=== PATIENT | male | born 1955 | race Caucasian/White ===

== ENCOUNTER 2021-02-16 00:23 | Inpatient (IN) | payer MEDICARE, MEDICAID ==
[~2021-02-16] VITALS: Ht 170.2 cm; Wt 83.0 kg
[~2021-02-16 00:23] MED LIST: AMIO200T33 PO; AMLO10CA33 PO; APIX5TAB PO; CHLO25TA2 PO; METO25TA5 PO; POTA10TA51 PO; SIMV-8 PO; TAMS0.4C36 PO
[2021-02-16] MEDS ORDERED: DEXTROSE (50%) 50ML SYRG IV ONE ×2 (02:00→07:15)
[2021-02-16] MEDS ORDERED: ALBUTEROL SULF 2.5 MG/0.5ML(0.5%) NEB SOLN NEB ONE (02:00)
[2021-02-16] MEDS ORDERED: SODIUM ZIRCONIUM CYCL 10 GM PAK PO ONE ×2 (02:00→07:15)
[2021-02-16] MEDS ORDERED: InsuLIN REG 1unit/0.01ml Soln (100units/ml) IV ONE ×2 (02:00→07:15)
[2021-02-16] MEDS ORDERED: SODIUM BICARBONATE 8.4% INJ 50ML SYRINGE IV ONE (02:00)
[2021-02-16] MEDS ORDERED: CALCIUM GLUC 1,000mg/50ml-NS 50 ML IV ONE ×2 (02:00→07:15)
[2021-02-16 02:01] LABS: Basophils % (manual) 0 (0.0-2.0); Blast Cells 0; Eosinophils % (manual) 0 (0-7); Hematocrit 41.3 % (41.0-53.0); Hemoglobin 13.6 g/dL (13.5-17.5); Mean Corpuscular Hemoglobin 30.1 pg (28.0-32.0); Mean Corpuscular Hgb Conc. 32.8 g/dL (32.0-36.0); Mean Corpuscular Volume 91.9 fL (80.0-100.0); Metamyelocytes % 0; Myelocytes % 0; Promyelocytes % 0; Reactive Lymphocytes 0; Red Cell Distribution Width 18.8 % (11.8-14.3)
[2021-02-16 02:04] LABS: Band Neutrophils % (manual) 7; Lymphocytes % (manual) 2 (10.0-50.0); Monocytes % (manual) 6 (0-12)
[2021-02-16 02:10] LABS: Alanine Aminotransferase 89 U/L (16-61); Albumin 2.8 g/dL (3.4-5.0); Alkaline Phosphatase 52 U/L (45-117); Anion Gap 20 (5-15); Aspartate Aminotransferase 72 U/L (15-37); Bilirubin, Total 0.7 mg/dL (0.2-1.0); Calcium 8.7 mg/dL (8.5-10.1); Carbon Dioxide 19 mmol/L (21-32); Chloride 95 mmol/L (98-107); GFR African American 9 mL/min; GFR Non-African American 7 mL/min; Glucose 95 mg/dL (74-106); Sodium 134 mmol/L (136-145); Total Protein 6.4 g/dL (6.4-8.2)
[2021-02-16 02:11] LABS: Potassium 6.2 mmol/L (3.5-5.1)
[2021-02-16 02:12] LABS: BUN/Creatinine Ratio 19.9; Blood Urea Nitrogen 157 mg/dL (7-18)
[2021-02-16 02:30] LABS: Magnesium 2.9 mg/dL (1.6-2.6)
[2021-02-16 03:03] LABS: Phosphorus 11.1 mg/dL (2.5-4.90)
[2021-02-16] MEDS ORDERED: SODIUM BICARBONATE 8.4 % INJ 50ML VIAL IV ONE (07:15)
[2021-02-16] MEDS ORDERED: MORPHINE SULFATE INJECTION 2 MG/ML SYRG IV PRN (07:15)
[2021-02-16] MEDS ORDERED: ONDANSETRON HCL 4 MG/2 ML VIAL IV PRN (07:15)
[2021-02-16] MEDS ORDERED: NITROGLYCERIN 0.4 MG SL TAB SL PRN (07:15)
[2021-02-16 08:05] LABS: INR 1.13 (0.9-1.15); Partial Thromboplastin Time 24.7 sec (23.6-33.0)
[2021-02-16] MEDS: METOPROLOL TARTRATE 25 MG TAB PO SCH ×2 (09:49→23:06)
[2021-02-16] MEDS: AMIODARONE HCL 200 MG TAB PO SCH ×2 (09:49→23:06)
[2021-02-16] MEDS ORDERED: PANTOPRAZOLE 40 MG TAB PO SCH (10:00)
[2021-02-16] MEDS ORDERED: cefTRIAXone 1GM/50ML D5W 50 ML IV ONE (13:30)
[2021-02-16] MEDS: SODIUM CHLORIDE 0.9% 1,000 ML IV SCH ×2 (13:55→23:56)
[2021-02-16] MEDS ORDERED: DEXA2TAB PO (14:32)
[2021-02-16] MEDS ORDERED: ALBU108A5 INH (14:32)
[2021-02-16] MEDS ORDERED: FLUT1AER3 INH (14:32)
[2021-02-16] MEDS ORDERED: MORP1TAB12 PO (14:32)
[2021-02-16] MEDS ORDERED: HYDR1TAB97 PO (14:32)
[2021-02-16] MEDS ORDERED: BICA50TA13 PO (14:32)
[2021-02-16] MEDS ORDERED: CAR3125T PO (14:32)
[2021-02-16] MEDS ORDERED: CARV3.1240 PO (14:43)
[2021-02-16] MEDS ORDERED: ATEN25TA PO (14:43)
[2021-02-16] MEDS ORDERED: CLON0.3T PO (14:43)
[2021-02-16] MEDS ORDERED: SPIR25TA8 PO (14:43)
[2021-02-16] MEDS ORDERED: GABA300C10 PO (14:43)
[2021-02-16 22:08] VITALS: BP 137/68
[2021-02-16] MEDS: ATORVASTATIN 20 MG TAB PO SCH (23:06)
[2021-02-17 05:00] VITALS: BP 111/57
[2021-02-17] MEDS: SODIUM CHLORIDE 0.9% 1,000 ML IV SCH (07:10)
[2021-02-17] MEDS ORDERED: ALBUTEROL SULF 2.5 MG/0.5ML(0.5%) NEB SOLN NEB ONE (07:15)
[2021-02-17] MEDS ORDERED: InsuLIN REG 1unit/0.01ml Soln (100units/ml) IV ONE (07:15)
[2021-02-17] MEDS ORDERED: DEXTROSE (50%) 50ML SYRG IV ONE ×3 (07:15→19:30)
[2021-02-17] MEDS ORDERED: SODIUM BICARBONATE 50ML VIAL 75 ML in SOD CHL 0.45% 1,000 ML IV SCH ×2 (07:15→15:30)
[2021-02-17] MEDS ORDERED: FUROSEMIDE 100 MG/10ML VIAL IV ONE (07:15)
[2021-02-17 08:24] LABS: Basophils # (auto) 0.1 10 ^3/uL (0-0.2); Basophils % (auto) 0.9 % (0.0-2.0); Eosinophils # (auto) 0 10 ^3/uL (0-0.8); Hematocrit 42.2 % (41.0-53.0); Hemoglobin 13.8 g/dL (13.5-17.5); Lymphocytes # (auto) 0.1 10 ^3/uL (0.4-5.4); Lymphocytes % (auto) 1.4 % (10.0-50.0); Mean Corpuscular Hemoglobin 30.4 pg (28.0-32.0); Mean Corpuscular Hgb Conc. 32.8 g/dL (32.0-36.0); Mean Corpuscular Volume 92.9 fL (80.0-100.0); Monocytes % (auto) 9.7 % (0.0-12.0); Nucleated Red Blood Cells % 0.3 %; Red Blood Cells 4.54 10^6/uL (4.5-5.90); Red Cell Distribution Width 19.2 % (11.8-14.3); White Blood Cell 10.2 10^3/uL (4.4-10.8)
[2021-02-17 08:35] LABS: Albumin 2.7 g/dL (3.4-5.0); Calcium 9.1 mg/dL (8.5-10.1)
[2021-02-17 08:38] LABS: BUN/Creatinine Ratio 19.5; Total Protein 6.3 g/dL (6.4-8.2)
[2021-02-17 08:42] LABS: Bilirubin, Total 0.7 mg/dL (0.2-1.0)
[2021-02-17 09:00] VITALS: BP 146/68
[2021-02-17] MEDS: SODIUM ZIRCONIUM CYCL 10 GM PAK PO SCH ×3 (09:13→22:00)
[2021-02-17] MEDS: ALLOPURINOL 100 MG TAB PO SCH (09:14)
[2021-02-17] MEDS: SEVELAMER 800 MG TAB PO SCH ×3 (09:14→18:00)
[2021-02-17] MEDS: cefTRIAXone 1GM/50ML D5W 50 ML IV SCH ×2 (09:15→10:47)
[2021-02-17 09:29] LABS: Potassium 6.6 mmol/L (3.5-5.1)
[2021-02-17] MEDS ORDERED: SODIUM ZIRCONIUM CYCL 10 GM PAK PO ONE (10:30)
[2021-02-17] MEDS ORDERED: SODIUM BICARBONATE 8.4 % INJ 50ML VIAL IV ONE (10:30)
[2021-02-17] MEDS: METOPROLOL TARTRATE 25 MG TAB PO SCH ×2 (10:46→12:30)
[2021-02-17] MEDS: AMIODARONE HCL 200 MG TAB PO SCH ×2 (10:46→22:00)
[2021-02-17 12:54] VITALS: BP 111/62
[2021-02-17] MEDS ORDERED: SODIUM CHL 0.9% 1000 ML BAG XX ONE (15:15)
[2021-02-17] MEDS ORDERED: MIDAZOLAM HCL 2MG/2ML 2ml VIAL (1mg/ml) IV ONE (15:30)
[2021-02-17] MEDS ORDERED: MORPHINE SULFATE INJECTION 2 MG/ML SYRG IM ONE (15:30)
[2021-02-17] MEDS ORDERED: HEPARIN 1,000 UNITS/ml 1ML VIAL IV ONE ×2 (15:30→15:45)
[2021-02-17] MEDS ORDERED: LORazepam 2MG/ML-1ML VIAL IM ONE (16:00)
[2021-02-17 16:35] LABS: Calcium 8.7 mg/dL (8.5-10.1); Potassium 5.1 mmol/L (3.5-5.1)
[2021-02-17 16:40] LABS: BUN/Creatinine Ratio 20.8
[2021-02-17 17:00] VITALS: BP 117/66
[2021-02-17] MEDS ORDERED: LIDOCAINE 2% JELLY 11ml (GLYDO) UR ONE (18:15)
[2021-02-17] MEDS: DEXTROSE 10% 1,000 ML IV SCH (20:11)
[2021-02-17 22:00] VITALS: BP 150/100
[2021-02-17] MEDS: ATORVASTATIN 20 MG TAB PO SCH (22:00)
[2021-02-17] MEDS ORDERED: LORazepam 2MG/ML-1ML VIAL IV PRN (22:15)
[2021-02-17] MEDS ORDERED: HALOPERIDOL LACTATE 5 MG/ML INJ VIAL IM PRN (22:15)
[2021-02-18 05:00] VITALS: BP 140/64
[2021-02-18] MEDS: SODIUM ZIRCONIUM CYCL 10 GM PAK PO SCH ×3 (06:00→22:26)
[2021-02-18] MEDS ORDERED: SODIUM CHL 0.9% 1000 ML BAG XX ONE (07:00)
[2021-02-18 08:05] LABS: Basophils # (auto) 0.2 10 ^3/uL (0-0.2); Basophils % (auto) 1.5 % (0.0-2.0); Eosinophils # (auto) 0 10 ^3/uL (0-0.8); Eosinophils % (auto) 0.2 % (0.0-7.0); Hematocrit 38.3 % (41.0-53.0); Hemoglobin 12.7 g/dL (13.5-17.5); Lymphocytes # (auto) 0.2 10 ^3/uL (0.4-5.4); Lymphocytes % (auto) 1.5 % (10.0-50.0); Mean Corpuscular Hemoglobin 30.4 pg (28.0-32.0); Mean Corpuscular Hgb Conc. 33.1 g/dL (32.0-36.0); Mean Corpuscular Volume 91.8 fL (80.0-100.0); Monocytes # (auto) 1.1 10 ^3/uL (0-1.3); Monocytes % (auto) 9.1 % (0.0-12.0); Neutrophils # (auto) 10.6 10 ^3/uL (1.6-8.6); Neutrophils % (auto) 87.7 % (37.0-80.0); Nucleated Red Blood Cells % 0.2 %; Red Blood Cells 4.17 10^6/uL (4.5-5.90); Red Cell Distribution Width 19.4 % (11.8-14.3)
[2021-02-18 08:30] LABS: Albumin 2.5 g/dL (3.4-5.0); Calcium 8.6 mg/dL (8.5-10.1)
[2021-02-18 08:35] LABS: BUN/Creatinine Ratio 16.8; Bilirubin, Total 0.8 mg/dL (0.2-1.0)
[2021-02-18 09:00] VITALS: BP 141/73
[2021-02-18] MEDS: AMIODARONE HCL 200 MG TAB PO SCH ×2 (10:46→22:26)
[2021-02-18] MEDS: METOPROLOL TARTRATE 25 MG TAB PO SCH ×2 (10:53→22:27)
[2021-02-18] MEDS: SEVELAMER 800 MG TAB PO SCH ×3 (11:22→18:03)
[2021-02-18] MEDS ORDERED: LORazepam 0.5 MG TAB PO PRN (12:45)
[2021-02-18 13:00] VITALS: BP 138/72
[2021-02-18 16:45] VITALS: BP 169/78
[2021-02-18] MEDS: DEXTROSE 10% 1,000 ML IV SCH (19:30)
[2021-02-18 22:00] VITALS: BP 164/83
[2021-02-18] MEDS: ATORVASTATIN 20 MG TAB PO SCH (22:26)
[2021-02-19 05:00] VITALS: BP 144/77
[2021-02-19] MEDS: SODIUM ZIRCONIUM CYCL 10 GM PAK PO SCH ×3 (06:27→21:18)
[2021-02-19] MEDS: ALLOPURINOL 100 MG TAB PO SCH (06:52)
[2021-02-19 08:01] LABS: Basophils # (auto) 0 10 ^3/uL (0-0.2); Basophils % (auto) 0.3 % (0.0-2.0); Eosinophils # (auto) 0.1 10 ^3/uL (0-0.8); Eosinophils % (auto) 0.9 % (0.0-7.0); Hematocrit 36.8 % (41.0-53.0); Hemoglobin 12.3 g/dL (13.5-17.5); Lymphocytes # (auto) 0.2 10 ^3/uL (0.4-5.4); Lymphocytes % (auto) 1.9 % (10.0-50.0); Mean Corpuscular Hemoglobin 30.3 pg (28.0-32.0); Mean Corpuscular Hgb Conc. 33.4 g/dL (32.0-36.0); Mean Corpuscular Volume 90.9 fL (80.0-100.0); Monocytes # (auto) 1.1 10 ^3/uL (0-1.3); Neutrophils # (auto) 9.9 10 ^3/uL (1.6-8.6); Neutrophils % (auto) 86.9 % (37.0-80.0); Nucleated Red Blood Cells % 0.2 %; Red Blood Cells 4.05 10^6/uL (4.5-5.90); White Blood Cell 11.3 10^3/uL (4.4-10.8)
[2021-02-19 08:26] LABS: Albumin 2.3 g/dL (3.4-5.0); Calcium 8.5 mg/dL (8.5-10.1); Potassium 4.4 mmol/L (3.5-5.1)
[2021-02-19 08:30] LABS: Bilirubin, Total 0.9 mg/dL (0.2-1.0); Total Protein 5.6 g/dL (6.4-8.2)
[2021-02-19 08:41] VITALS: BP 145/83
[2021-02-19] MEDS: SEVELAMER 800 MG TAB PO SCH ×3 (10:47→17:28)
[2021-02-19] MEDS: AMIODARONE HCL 200 MG TAB PO SCH ×2 (10:48→21:17)
[2021-02-19] MEDS: METOPROLOL TARTRATE 25 MG TAB PO SCH ×2 (10:49→21:19)
[2021-02-19 12:54] VITALS: BP 177/81
[2021-02-19] MEDS ORDERED: LORazepam 2MG/ML-1ML VIAL IV ONE (14:00)
[2021-02-19] MEDS ORDERED: MORPHINE SULFATE INJECTION 2 MG/ML SYRG IV ONE (14:00)
[2021-02-19] MEDS ORDERED: HEPARIN 1,000 UNITS/ml 1ML VIAL IV ONE (14:30)
[2021-02-19] MEDS: cefTRIAXone 1GM/50ML D5W 50 ML IV SCH (15:38)
[2021-02-19 17:00] VITALS: BP 160/87
[2021-02-19] MEDS: SOD CHL 0.45% 1,000 ML IV SCH (17:29)
[2021-02-19] MEDS: cloNIDine HCL 0.1 MG TAB PO PRN (17:53)
[2021-02-19] MEDS: ATORVASTATIN 20 MG TAB PO SCH (21:18)
[2021-02-19 22:00] VITALS: BP 141/75
[2021-02-20 05:00] VITALS: BP 148/80
[2021-02-20] MEDS: SODIUM ZIRCONIUM CYCL 10 GM PAK PO SCH (05:54)
[2021-02-20] MEDS: SOD CHL 0.45% 1,000 ML IV SCH ×2 (05:54→13:58)
[2021-02-20] MEDS ORDERED: diphenhdrAMINE HCL 25 MG CAP PO ONE (08:30)
[2021-02-20 08:35] VITALS: BP 158/73
[2021-02-20] MEDS: cefTRIAXone 1GM/50ML D5W 50 ML IV SCH (08:47)
[2021-02-20] MEDS: cloNIDine HCL 0.1 MG TAB PO PRN (08:48)
[2021-02-20] MEDS: SEVELAMER 800 MG TAB PO SCH ×3 (08:48→18:36)
[2021-02-20 12:37] VITALS: BP 142/85
[2021-02-20] MEDS: LORazepam 0.5 MG TAB PO SCH ×2 (13:58→21:52)
[2021-02-20] MEDS: AMIODARONE HCL 200 MG TAB PO SCH ×2 (15:11→21:53)
[2021-02-20] MEDS: METOPROLOL TARTRATE 25 MG TAB PO SCH ×2 (15:12→21:53)
[2021-02-20 15:50] LABS: BUN/Creatinine Ratio 13.7; Calcium 7.9 mg/dL (8.5-10.1); Potassium 3.7 mmol/L (3.5-5.1)
[2021-02-20 16:37] VITALS: BP 153/70
[2021-02-20] MEDS: ATORVASTATIN 20 MG TAB PO SCH (21:53)
[2021-02-20 22:00] VITALS: BP 140/71
[2021-02-21] MEDS: SOD CHL 0.45% 1,000 ML IV SCH ×3 (03:28→17:45)
[2021-02-21 05:00] VITALS: BP 140/79
[2021-02-21] MEDS: LORazepam 0.5 MG TAB PO SCH ×3 (06:00→22:06)
[2021-02-21] MEDS ORDERED: SODIUM CHL 0.9% 1000 ML BAG XX ONE (07:15)
[2021-02-21 09:00] VITALS: BP 131/65
[2021-02-21] MEDS: cefTRIAXone 1GM/50ML D5W 50 ML IV SCH (09:53)
[2021-02-21] MEDS: METOPROLOL TARTRATE 25 MG TAB PO SCH ×2 (09:55→22:07)
[2021-02-21] MEDS: ALLOPURINOL 100 MG TAB PO SCH (09:55)
[2021-02-21] MEDS: AMIODARONE HCL 200 MG TAB PO SCH ×2 (09:55→22:07)
[2021-02-21] MEDS: SEVELAMER 800 MG TAB PO SCH ×3 (09:56→18:19)
[2021-02-21 17:00] VITALS: BP 157/77
[2021-02-21] MEDS ORDERED: EPOETIN ALFA-EPBX 10,000 UNIT/1ML VIAL SC ONE (21:30)
[2021-02-21 22:00] VITALS: BP 151/71
[2021-02-21] MEDS: ATORVASTATIN 20 MG TAB PO SCH (22:07)
[2021-02-22] MEDS: SOD CHL 0.45% 1,000 ML IV SCH (01:22)
[2021-02-22] MEDS: LORazepam 0.5 MG TAB PO SCH ×3 (05:14→21:08)
[2021-02-22 05:48] LABS: Potassium 3.5 mmol/L (3.5-5.1)
[2021-02-22 05:57] LABS: Albumin 1.9 g/dL (3.4-5.0); BUN/Creatinine Ratio 11.2; Bilirubin, Total 0.5 mg/dL (0.2-1.0); Calcium 7.3 mg/dL (8.5-10.1); Phosphorus 6.2 mg/dL (2.5-4.90); Total Protein 5.1 g/dL (6.4-8.2); Uric Acid 7.9 mg/dL (3.5-7.2)
[2021-02-22] MEDS: SEVELAMER 800 MG TAB PO SCH ×3 (08:00→18:00)
[2021-02-22 09:00] VITALS: BP 145/75
[2021-02-22] MEDS: cefTRIAXone 1GM/50ML D5W 50 ML IV SCH (09:00)
[2021-02-22] MEDS: METOPROLOL TARTRATE 25 MG TAB PO SCH ×2 (10:00→21:09)
[2021-02-22] MEDS: AMIODARONE HCL 200 MG TAB PO SCH ×2 (10:00→21:09)
[2021-02-22 12:59] VITALS: BP 140/63
[2021-02-22 17:00] VITALS: BP 154/73
[2021-02-22] MEDS: ATORVASTATIN 20 MG TAB PO SCH (21:09)
[2021-02-22 22:00] VITALS: BP 160/78
[2021-02-22 22:42] LABS: Folate (Folic Acid) 13.95 ng/mL (5.38-24)
[2021-02-22] MEDS: ACETAMINOPHEN 325 MG TAB PO PRN (23:29)
[2021-02-23] MEDS: cloNIDine HCL 0.1 MG TAB PO PRN (04:26)
[2021-02-23 04:34] VITALS: BP 173/88
[2021-02-23] MEDS: LORazepam 0.5 MG TAB PO SCH ×3 (05:17→22:56)
[2021-02-23] MEDS ORDERED: SODIUM CHL 0.9% 1000 ML BAG XX ONE (07:00)
[2021-02-23 07:26] LABS: Basophils # (auto) 0.1 10 ^3/uL (0-0.2); Basophils % (auto) 0.6 % (0.0-2.0); Eosinophils # (auto) 0.1 10 ^3/uL (0-0.8); Eosinophils % (auto) 1.5 % (0.0-7.0); Hematocrit 29.6 % (41.0-53.0); Hemoglobin 9.9 g/dL (13.5-17.5); Lymphocytes # (auto) 0.2 10 ^3/uL (0.4-5.4); Mean Corpuscular Hemoglobin 31.2 pg (28.0-32.0); Mean Corpuscular Hgb Conc. 33.5 g/dL (32.0-36.0); Mean Corpuscular Volume 93.1 fL (80.0-100.0); Monocytes # (auto) 0.7 10 ^3/uL (0-1.3); Monocytes % (auto) 7.8 % (0.0-12.0); Neutrophils # (auto) 7.5 10 ^3/uL (1.6-8.6); Neutrophils % (auto) 88.1 % (37.0-80.0); Red Blood Cells 3.17 10^6/uL (4.5-5.90); Red Cell Distribution Width 18.8 % (11.8-14.3); White Blood Cell 8.5 10^3/uL (4.4-10.8)
[2021-02-23 07:42] LABS: Albumin 1.9 g/dL (3.4-5.0); Calcium 7.5 mg/dL (8.5-10.1); Potassium 3.2 mmol/L (3.5-5.1)
[2021-02-23 07:47] LABS: BUN/Creatinine Ratio 10.7; Bilirubin, Total 0.4 mg/dL (0.2-1.0); Total Protein 5.1 g/dL (6.4-8.2)
[2021-02-23] MEDS: SEVELAMER 800 MG TAB PO SCH ×3 (08:00→17:46)
[2021-02-23 09:00] VITALS: BP 124/59
[2021-02-23 12:36] VITALS: BP 140/79
[2021-02-23] MEDS: cefTRIAXone 1GM/50ML D5W 50 ML IV SCH (12:50)
[2021-02-23] MEDS: METOPROLOL TARTRATE 25 MG TAB PO SCH ×2 (12:50→22:59)
[2021-02-23] MEDS: AMIODARONE HCL 200 MG TAB PO SCH ×2 (12:50→22:57)
[2021-02-23] MEDS: ALLOPURINOL 100 MG TAB PO SCH (12:50)
[2021-02-23 17:01] VITALS: BP 146/71
[2021-02-23] MEDS ORDERED: EPOETIN ALFA-EPBX 10,000 UNIT/1ML VIAL SC ONE ×2 (21:00)
[2021-02-23] MEDS: HYDROcodone-ACET 5/325MG TAB PO PRN (21:10)
[2021-02-23 22:00] VITALS: BP 163/80
[2021-02-23] MEDS: ATORVASTATIN 20 MG TAB PO SCH (22:57)
[2021-02-23] MEDS: ACETAMINOPHEN 325 MG TAB PO PRN (22:57)
[2021-02-24] MEDS ORDERED: TEMAZEPAM 15 MG CAP PO ONE (01:00)
[2021-02-24 05:00] VITALS: BP 148/70
[2021-02-24] MEDS: LORazepam 0.5 MG TAB PO SCH ×3 (05:04→21:46)
[2021-02-24 07:05] LABS: Albumin 1.9 g/dL (3.4-5.0); Calcium 7.8 mg/dL (8.5-10.1); Potassium 3.5 mmol/L (3.5-5.1)
[2021-02-24 07:09] LABS: BUN/Creatinine Ratio 9.2; Bilirubin, Total 0.4 mg/dL (0.2-1.0); Total Protein 5.3 g/dL (6.4-8.2)
[2021-02-24] MEDS: SEVELAMER 800 MG TAB PO SCH ×3 (08:00→18:00)
[2021-02-24 09:00] VITALS: BP 154/65
[2021-02-24] MEDS ORDERED: ceFAZolin 1GM/50ML 100 ML IV ONE (10:55)
[2021-02-24] MEDS ORDERED: fentaNYL CITRATE 100 MCG/2 ML VL ONE (11:16)
[2021-02-24] MEDS ORDERED: MEPERIDINE HCL (25 MG/ML) 1ML VIAL ONE (11:16)
[2021-02-24] MEDS ORDERED: MIDAZOLAM HCL 2MG/2ML 2ml VIAL (1mg/ml) ONE (11:16)
[2021-02-24] MEDS ORDERED: DexAMETHasone SOD PHOS 10MG/1ML VIAL INJ ONE (11:47)
[2021-02-24] MEDS ORDERED: PROPOFOL 10 MG/ML 20 ML IV ONE (11:47)
[2021-02-24] MEDS ORDERED: MORPHINE SULFATE 4 MG/ML SYR/VIAL IV PRN (12:15)
[2021-02-24] MEDS ORDERED: ONDANSETRON HCL 4 MG/2 ML VIAL IV PRN (12:15)
[2021-02-24] MEDS ORDERED: fentaNYL CITRATE 100 MCG/2 ML VL IV PRN (12:15)
[2021-02-24] MEDS ORDERED: LABETALOL HCL 5 MG/ML 4ML SYRINGE IV PRN (12:15)
[2021-02-24] MEDS ORDERED: ePHEDrine SULFATE 50 MG/ML AMP IV PRN (12:15)
[2021-02-24] MEDS ORDERED: MIDAZOLAM HCL 2MG/2ML 2ml VIAL (1mg/ml) IV PRN (12:15)
[2021-02-24] MEDS: AMIODARONE HCL 200 MG TAB PO SCH ×2 (13:30→21:46)
[2021-02-24] MEDS: METOPROLOL TARTRATE 25 MG TAB PO SCH ×2 (13:30→21:45)
[2021-02-24 15:54] LABS: Urine Bacteria NONE SEEN /hpf (None Seen); Urine Blood 1+ /uL (Negative); Urine Specific Gravity 1.015 (1.001-1.035); Urine WBC 4 /hpf (0 - 3)
[2021-02-24] MEDS: HYDROcodone-ACET 5/325MG TAB PO PRN ×2 (16:10→23:33)
[2021-02-24 16:52] VITALS: BP 165/83
[2021-02-24] MEDS: ATORVASTATIN 20 MG TAB PO SCH (21:46)
[2021-02-24 22:00] VITALS: BP 155/92
[2021-02-25 05:00] VITALS: BP 151/73
[2021-02-25] MEDS: LORazepam 0.5 MG TAB PO SCH ×3 (05:07→21:36)
[2021-02-25] MEDS: ALLOPURINOL 100 MG TAB PO SCH (05:13)
[2021-02-25] MEDS ORDERED: SODIUM CHL 0.9% 1000 ML BAG XX ONE (07:00)
[2021-02-25 07:30] LABS: Hematocrit 32.7 % (41.0-53.0); Hemoglobin 10.8 g/dL (13.5-17.5)
[2021-02-25] MEDS: SEVELAMER 800 MG TAB PO SCH ×3 (08:00→18:00)
[2021-02-25 08:01] LABS: Albumin 2.1 g/dL (3.4-5.0); Potassium 4.1 mmol/L (3.5-5.1)
[2021-02-25 08:16] LABS: BUN/Creatinine Ratio 8.9; Bilirubin, Total 0.4 mg/dL (0.2-1.0)
[2021-02-25] MEDS: METOPROLOL TARTRATE 25 MG TAB PO SCH ×2 (08:38→21:44)
[2021-02-25] MEDS: HYDROcodone-ACET 5/325MG TAB PO PRN (08:40)
[2021-02-25 09:00] VITALS: BP 187/85
[2021-02-25] MEDS: AMIODARONE HCL 200 MG TAB PO SCH ×2 (10:00→21:36)
[2021-02-25 13:00] VITALS: BP 157/61
[2021-02-25] MEDS ORDERED: ALBUTEROL SULF 2.5 MG/0.5ML(0.5%) NEB SOLN NEB PRN (13:15)
[2021-02-25] MEDS ORDERED: IPRATROPIUM BROM 0.5 MG/2.5ML INH SOL NEB PRN (13:15)
[2021-02-25] MEDS ORDERED: ALBUTEROL SULF 2.5 MG/0.5ML(0.5%) NEB SOLN NEB SCH (14:00)
[2021-02-25] MEDS ORDERED: IPRATROPIUM BROM 0.5 MG/2.5ML INH SOL NEB SCH (14:00)
[2021-02-25 15:43] VITALS: BP 157/61
[2021-02-25 17:00] VITALS: BP 162/61
[2021-02-25] MEDS: HYDROmorphone HCL 2 MG/ML VL IV PRN (19:15)
[2021-02-25] MEDS ORDERED: SIMV-8 PO (19:32)
[2021-02-25] MEDS ORDERED: FURO40TA4 PO (19:32)
[2021-02-25] MEDS ORDERED: TAMS0.4C36 PO (19:32)
[2021-02-25] MEDS ORDERED: EPOETIN ALFA-EPBX 10,000 UNIT/1ML VIAL SC ONE (21:00)
[2021-02-25] MEDS: ATORVASTATIN 20 MG TAB PO SCH (21:36)
[2021-02-25 22:00] VITALS: BP 143/86
[2021-02-26] MEDS: HYDROmorphone HCL 2 MG/ML VL IV PRN ×3 (01:40→22:20)
[2021-02-26] MEDS: HYDROcodone-ACET 5/325MG TAB PO PRN ×2 (04:57→16:59)
[2021-02-26] MEDS: LORazepam 0.5 MG TAB PO SCH ×3 (04:57→20:16)
[2021-02-26 05:17] VITALS: BP 134/70
[2021-02-26] MEDS: SEVELAMER 800 MG TAB PO SCH ×3 (09:05→18:17)
[2021-02-26 09:15] VITALS: BP 155/68
[2021-02-26] MEDS: AMIODARONE HCL 200 MG TAB PO SCH ×2 (09:36→20:16)
[2021-02-26] MEDS: METOPROLOL TARTRATE 25 MG TAB PO SCH ×2 (09:37→21:31)
[2021-02-26 11:47] LABS: Albumin 2.2 g/dL (3.4-5.0); BUN/Creatinine Ratio 9.2
[2021-02-26 11:50] LABS: Bilirubin, Total 0.3 mg/dL (0.2-1.0); Total Protein 6.1 g/dL (6.4-8.2)
[2021-02-26 13:00] VITALS: BP 148/79
[2021-02-26] MEDS: cloNIDine HCL 0.1 MG TAB PO PRN (16:59)
[2021-02-26 17:00] VITALS: BP 192/97
[2021-02-26] MEDS: ATORVASTATIN 20 MG TAB PO SCH (20:16)
[2021-02-26 22:00] VITALS: BP 173/65
[2021-02-27] MEDS: HYDROmorphone HCL 2 MG/ML VL IV PRN ×2 (03:26→10:06)
[2021-02-27 05:00] VITALS: BP 148/81
[2021-02-27] MEDS: ALLOPURINOL 100 MG TAB PO SCH (05:09)
[2021-02-27] MEDS: LORazepam 0.5 MG TAB PO SCH ×3 (05:09→21:36)
[2021-02-27 06:43] LABS: Potassium 4.1 mmol/L (3.5-5.1)
[2021-02-27 06:47] LABS: BUN/Creatinine Ratio 10.3; Bilirubin, Total 0.4 mg/dL (0.2-1.0); Total Protein 5.5 g/dL (6.4-8.2)
[2021-02-27] MEDS: SEVELAMER 800 MG TAB PO SCH ×3 (08:47→18:07)
[2021-02-27 09:11] VITALS: BP 137/69
[2021-02-27] MEDS: AMIODARONE HCL 200 MG TAB PO SCH ×2 (10:02→21:35)
[2021-02-27] MEDS: METOPROLOL TARTRATE 25 MG TAB PO SCH ×2 (10:02→21:37)
[2021-02-27 13:00] VITALS: BP 99/56
[2021-02-27 16:33] VITALS: BP 170/91
[2021-02-27] MEDS: cloNIDine HCL 0.1 MG TAB PO PRN (16:42)
[2021-02-27] MEDS: HYDROcodone-ACET 5/325MG TAB PO PRN (16:42)
[2021-02-27] MEDS: ATORVASTATIN 20 MG TAB PO SCH (21:36)
[2021-02-27 22:00] VITALS: BP 157/77
[2021-02-28] MEDS: HYDROcodone-ACET 5/325MG TAB PO PRN (01:06)
[2021-02-28] MEDS: HYDROmorphone HCL 2 MG/ML VL IV PRN ×2 (02:10→08:40)
[2021-02-28 05:00] VITALS: BP 151/72
[2021-02-28] MEDS: LORazepam 0.5 MG TAB PO SCH (06:14)
[2021-02-28] MEDS: SEVELAMER 800 MG TAB PO SCH ×2 (08:00→12:00)
[2021-02-28] MEDS: METOPROLOL TARTRATE 25 MG TAB PO SCH (08:39)
[2021-02-28] MEDS: AMIODARONE HCL 200 MG TAB PO SCH (08:39)
[2021-02-28 09:24] VITALS: BP 157/83
[2021-02-28 12:41] VITALS: BP 159/86
[2021-02-28 12:42] VITALS: BP 159/86
[2021-02-28 12:56] LABS: Hepatitis B Surface Antigen Negative (Negative)
[2021-02-28 13:12] LABS: Hepatitis B Surface Antibody Positive
[2021-02-28 13:22] LABS: Hepatitis A Total Antibody Negative
[2021-02-28 13:24] LABS: Hepatitis C Antibody Negative (Negative)
[2021-02-28 13:47] LABS: Hepatitis B Core Total AB Negative
== END 2021-02-28 13:45 | disposition home or self-care (01) | DRG 720 ==
LOC: ER 00:23 → TELE 07:05 → TELE-WESTW 21:58
PROVIDERS: ADMIT Nurse Practitioner; ATTEND Family Medicine
PROC: 02HV33Z Insertion of Infusion Device into Superior Vena Cava, Percutaneous Approach (ICD-10-PCS; principal; 2021-02-17)
PROC: B548ZZA Ultrasonography of Superior Vena Cava, Guidance (ICD-10-PCS; 2021-02-17)
PROC: 5A1D70Z Performance of Urinary Filtration, Intermittent, Less than 6 Hours Per Day (ICD-10-PCS; 2021-02-17)
PROC: 5A1D70Z Performance of Urinary Filtration, Intermittent, Less than 6 Hours Per Day (ICD-10-PCS; 2021-02-18)
PROC: 05PYX3Z Removal of Infusion Device from Upper Vein, External Approach (ICD-10-PCS; 2021-02-19)
PROC: 02H633Z Insertion of Infusion Device into Right Atrium, Percutaneous Approach (ICD-10-PCS; 2021-02-19)
PROC: B548ZZA Ultrasonography of Superior Vena Cava, Guidance (ICD-10-PCS; 2021-02-19)
PROC: 5A1D70Z Performance of Urinary Filtration, Intermittent, Less than 6 Hours Per Day (ICD-10-PCS; 2021-02-21)
PROC: 5A1D70Z Performance of Urinary Filtration, Intermittent, Less than 6 Hours Per Day (ICD-10-PCS; 2021-02-23)
PROC: 0T7D8ZZ Dilation of Urethra, Via Natural or Artificial Opening Endoscopic (ICD-10-PCS; 2021-02-24)
PROC: 0T9B80Z Drainage of Bladder with Drainage Device, Via Natural or Artificial Opening Endoscopic (ICD-10-PCS; 2021-02-24)
PROC: 5A1D70Z Performance of Urinary Filtration, Intermittent, Less than 6 Hours Per Day (ICD-10-PCS; 2021-02-25)
DX: A41.9 Sepsis, unspecified organism (principal); N17.0 Acute kidney failure with tubular necrosis; R65.21 Severe sepsis with septic shock; G93.41 Metabolic encephalopathy; I13.2 Hypertensive heart and chronic kidney disease with heart failure and with stage 5 chronic kidney disease, or end stage renal disease; C79.51 Secondary malignant neoplasm of bone; E83.39 Other disorders of phosphorus metabolism; G40.209 Localization-related (focal) (partial) symptomatic epilepsy and epileptic syndromes with complex partial seizures, not intractable, without status epilepticus; I48.91 Unspecified atrial fibrillation; C61 Malignant neoplasm of prostate; I50.9 Heart failure, unspecified; E87.5 Hyperkalemia; J44.9 Chronic obstructive pulmonary disease, unspecified; N39.0 Urinary tract infection, site not specified; E78.00 Pure hypercholesterolemia, unspecified; F17.200 Nicotine dependence, unspecified, uncomplicated; M10.9 Gout, unspecified; M54.50 Low back pain, unspecified; Z20.822 Contact with and (suspected) exposure to COVID-19; R33.9 Retention of urine, unspecified; N18.5 Chronic kidney disease, stage 5; N26.1 Atrophy of kidney (terminal); Z79.01 Long term (current) use of anticoagulants; Z79.899 Other long term (current) drug therapy; Z85.46 Personal history of malignant neoplasm of prostate; Z90.79 Acquired absence of other genital organ(s); Z92.3 Personal history of irradiation; Z95.0 Presence of cardiac pacemaker; Z99.2 Dependence on renal dialysis; Z88.2 Allergy status to sulfonamides; N32.0 Bladder-neck obstruction
CPT/HCPCS: 36415; 70450; 71045; 71046; 74176; 76775; 78306; 80048; 80053; 80074; 81001; 82550; 82607; 82746; 82962; 83605; 83735; 83880; 84100; 84132; 84154; 84484; 84550; 85007; 85014; 85018; 85025; 85027; 85610; 85730; 86704; 86706; 86708; 86803; 86850; 86900; 86901; 87040; 87340; 87426; 90935; 93005; 94640; 95819; 96365; 96375; G0378; J0690; J0696; J1100; J1642; J1815; J2250; J2704

== ENCOUNTER 2022-02-13 14:02 | Emergency (ER) | payer MEDICARE, MEDICAID ==
[~2022-02-13] VITALS: Ht 170.2 cm; Wt 75.0 kg
[~2022-02-13 14:02] MED LIST changes: +ALBU108A5 INH; -AMIO200T33 PO; -APIX5TAB PO; +ATEN25TA PO; +BICA50TA13 PO; +CARV3.1240 PO; +CLON0.3T PO; +DEXA2TAB PO; +FLUT1AER3 INH; +FURO40TA4 PO; +GABA300C10 PO; +HYDR1TAB97 PO; -METO25TA5 PO; +MORP1TAB12 PO; +SPIR25TA8 PO
[2022-02-13] MEDS ORDERED: diphenhdrAMINE HCL 50 MG/1 ML VL ONE (14:12)
[2022-02-13] MEDS ORDERED: EPINEPHrine HCL 1 MG/1 ML AMP ONE (14:12)
[2022-02-13] MEDS ORDERED: methylPREDNISolone SOD SUCC 125 MG/2 ML VL ONE (14:12)
[2022-02-13] MEDS ORDERED: methylPREDNISolone SOD SUCC 125 MG/2 ML VL IV ONE (14:15)
[2022-02-13] MEDS ORDERED: diphenhdrAMINE HCL 50 MG/1 ML VL IV ONE (14:15)
[2022-02-13] MEDS ORDERED: EPINEPHrine HCL 1 MG/1 ML AMP SC ONE (14:15)
[2022-02-13 14:26] VITALS: BP 174/106
[2022-02-13 15:26] LABS: Basophils # (auto) 0 10 ^3/uL (0-0.2); Basophils % (auto) 0.5 % (0.0-2.0); Eosinophils # (auto) 0.2 10 ^3/uL (0-0.8); Eosinophils % (auto) 2.1 % (0.0-7.0); Hematocrit 44.1 % (41.0-53.0); Hemoglobin 14.7 g/dL (13.5-17.5); Lymphocytes # (auto) 1.1 10 ^3/uL (0.4-5.4); Lymphocytes % (auto) 10.9 % (10.0-50.0); Mean Corpuscular Hemoglobin 30.3 pg (28.0-32.0); Mean Corpuscular Hgb Conc. 33.4 g/dL (32.0-36.0); Mean Corpuscular Volume 90.7 fL (80.0-100.0); Monocytes # (auto) 0.7 10 ^3/uL (0-1.3); Monocytes % (auto) 6.3 % (0.0-12.0); Neutrophils # (auto) 8.3 10 ^3/uL (1.6-8.6); Neutrophils % (auto) 80.2 % (37.0-80.0); Red Blood Cells 4.86 10^6/uL (4.5-5.90); Red Cell Distribution Width 15.1 % (11.8-14.3); White Blood Cell 10.4 10^3/uL (4.4-10.8)
[2022-02-13 15:42] LABS: Alanine Aminotransferase 11 U/L (16-61); Albumin 3.3 g/dL (3.4-5.0); Anion Gap 13 (5-15); BUN/Creatinine Ratio 20.9; Blood Urea Nitrogen 33 mg/dL (7-18); Calcium 9.3 mg/dL (8.5-10.1); Carbon Dioxide 18 mmol/L (21-32); Chloride 108 mmol/L (98-107); GFR African American 57 mL/min; GFR Non-African American 47 mL/min; Glucose 117 mg/dL (74-106); Potassium 4.6 mmol/L (3.5-5.1); Sodium 139 mmol/L (136-145)
[2022-02-13 15:45] LABS: Alkaline Phosphatase 42 U/L (45-117); Aspartate Aminotransferase 23 U/L (15-37); Bilirubin, Total 0.7 mg/dL (0.2-1.0); Total Protein 7.1 g/dL (6.4-8.2)
[2022-02-13] MEDS ORDERED: ENOXAPARIN SOD 80 MG/0.8ML SYRINGE SC ONE (16:45)
== END 2022-02-13 17:29 | disposition left against medical advice (07) ==
LOC: ER 14:02
DX: T78.40XA Allergy, unspecified, initial encounter (principal); I21.4 Non-ST elevation (NSTEMI) myocardial infarction; X58.XXXA Exposure to other specified factors, initial encounter
CPT/HCPCS: 36415; 71045; 80053; 84484; 85025; 93005; 96372; 96374; 96375; 99285; J0171; J1200; J1650; J2930

== ENCOUNTER 2022-08-25 17:22 | Emergency (ER) | payer MEDICARE, MEDICAID ==
[~2022-08-25] VITALS: Ht 182.9 cm; Wt 86.3 kg
[2022-08-25] MEDS ORDERED: CALCIUM CHLOR(10%) 100MG/ML 10ML SYRINGE IV ONE (17:23)
[2022-08-25] MEDS ORDERED: EPINEPHrine HCL 1 MG/10 ML SYRG IV ONE (17:23)
[2022-08-25] MEDS ORDERED: SODIUM BICARBONATE 8.4% INJ 50ML SYRINGE IV ONE (17:23)
[2022-08-25 17:34] VITALS: BP 0/0
== END 2022-08-26 00:04 ==
LOC: ER 17:22 → EDUNIT# 17:22 → EDBD 17:22 → ER 08-26 00:04
DX: I46.9 Cardiac arrest, cause unspecified (principal); J44.9 Chronic obstructive pulmonary disease, unspecified; I11.0 Hypertensive heart disease with heart failure; I50.9 Heart failure, unspecified; Z88.2 Allergy status to sulfonamides
CPT/HCPCS: 92950; 99285; J0171